=== PATIENT | male | born 1990 | race Hispanic/Latino ===

== ENCOUNTER 2016-05-23 11:07 | Emergency (ER) | payer SELFPAY ==
--- NOTE | 2016-05-23 12:13 | Emergency Department Report ---
Upper Extremity - HPI Chief Complaint: Extremity Injury, Upper Stated Complaint: RT HAND SWOLLEN Time Seen by Provider: 05/23/16 12:12 Upper Extremity: Left Hand (patient here complaining of right hand pain that traveling up to elbow and sometimes he feels that the pain is traveling from his elbow down to his hand. Pain ranges from 3-5 movement.), Left Thumb (right thumb pain palmar and dorsal aspect) Occurred When: 1 Day Mechanism: Unsure Severity: mild Symptoms: Yes Pain with Movement (right thumb and hand), Yes Limited Range of Movement (procedures unable to squeeze his hand. In fact is right thumb hurts when he moves it.), Yes Weakness, Yes Swelling, No Deformity, No Numbness, No Bruising/Ecchymosis, No Laceration or Abrasion Other History: This is a 25-year-old male patient who is here for right hand and thumb pain that started yesterday. Patient says he is having pain and swelling to right hand, and dorsal aspect especially to his right thumb. He reports that pain radiates from his hand to elbow and sometimes he feels like it radiates from is elbow to his hand. Described pain as sharp and ranges from 3-5 out of 10 movement. 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 She denies any fever or chills. Denies any nausea or vomiting. ED Review of Systems ROS: Stated complaint: RT HAND SWOLLEN Other details as noted in HPI Comment: All other systems reviewed and negative Constitutional: denies: chills, fever Eyes: denies: eye pain ENT: denies: ear pain, throat pain, congestion Respiratory: no symptoms reported Cardiovascular: denies: chest pain, palpitations, edema, syncope Gastrointestinal: denies: nausea, vomiting Musculoskeletal: joint swelling, arthralgia. denies: back pain Skin: denies: rash Neurological: weakness (to right hand). denies: headache, numbness, paresthesias, confusion, abnormal gait, vertigo ED Past Medical Hx - Past Medical History Previous Medical History?: Yes Hx Asthma: Yes - Surgical History Past Surgical History?: No - Family History Family history: no significant - Social History Smoking Status: Current Every Day Smoker Substance Use Type: Alcohol - Medications Home Medications: Home Medications Medication Instructions Recorded Confirmed Last Taken Type Naproxen [Naprosyn TAB] 500 mg PO BID PRN #20 tablet 05/23/16 Unknown Rx Upper Extremity Exam - Exam General: Vital signs noted. No distress. Alert and acting appropriately. This is a 25-year-old male well-nourished well-developed and nontoxic in appearance. Head and Torso: No HEENT Abnormality, No Neck Tenderness, No Chest/Lungs Abnormality, No Abdominal Tenderness, No Back Tenderness Shoulder Exam: Yes Normal Range of Motion in Shoulder, No Shoulder Tenderness, No Clavicle Tenderness, No Shoulder Deformity, No AC Joint Tenderness Arm Exam: No Arm/Humerus Tenderness, No Arm Deformity Elbow: Yes Normal Range of Motion in Elbow, No Elbow Tenderness, No Elbow Deformity Forearm: No Forearm Tenderness, No Forearm Deformity, No Pain with Pronation, No Pain with Supination Wrist: Yes Wrist Tenderness (radial side.), Yes Normal ROM in Wrist, Yes Pain with Axial Thumb Compression (right thumb), No Wrist Deformity, No Snuffbox Tenderness Hand: Yes Hand Tenderness (dorsal and palmar side right thumb area.), Yes Digit Tenderness (right thumb dorsal and palmar side), Yes Tendon Dysfunction ( enlargement of right thumb. Slightly flexed right thumb. Weakness to right hand and patient unable to make a fist. 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 Normal sensation to soft and pinprick), No Broken Skin ED Course Vital Signs 05/23/16 11:16 Temperature 98.4 F Pulse Rate 69 Respiratory 16 Rate Blood Pressure 126/84 O2 Sat by Pulse 100 Oximetry Vital Signs 05/23/16 05/23/16 05/23/16 11:16 12:46 14:13 Temperature 98.4 F Pulse Rate 69 73 Respiratory 16 16 18 Rate Blood Pressure 126/84 Blood Pressure 124/83 [Left] O2 Sat by Pulse 100 99 Oximetry - Reevaluation(s) Reevaluation #1: 05/23/16 13:38 Patient given morphine 4 mg IV, 1 L of normal saline. Lab work was ordered. I spoke with Dr. WINCHESTER who examined patient and awaiting lab results. Reevaluation #2: 05/23/16 14:52 Patient stable, lab work noted in evaluating patient, x-ray of the right hand normal exam. - Orthopedic Splinting/Casting Injury #1 Side: right Upper Extremity Injury Location: hand (with Thumb Spica) Upper Extremity Immobilizer: thumb spica (Prefabricated) ED Medical Decision Making - Lab Data Result diagrams: 05/23/16 12:50 Lab Results 05/23/16 05/23/16 05/23/16 Range/Units 12:50 12:50 12:50 WBC 7.7 (4.5-11.0) K/mm3 RBC 4.76 (3.65-5.03) M/mm3 Hgb 15.5 H (11.8-15.2) gm/dl Hct 45.4 (35.5-45.6) % MCV 95 H (84-94) fl MCH 33 H (28-32) pg MCHC 34 (32-34) % RDW 13.4 (13.2-15.2) % Plt Count 291 (140-440) K/mm3 Lymph % (Auto) 32.8 (13.4-35.0) % Sheridan % (Auto) 8.1 H (0.0-7.3) % Eos % (Auto) 6.1 H (0.0-4.3) % Baso % (Auto) 1.2 (0.0-1.8) % Lymph # 2.5 (1.2-5.4) K/mm3 Sheridan # 0.6 (0.0-0.8) K/mm3 Eos # 0.5 H (0.0-0.4) K/mm3 Baso # 0.1 (0.0-0.1) K/mm3 Seg Neutrophils % 51.8 (40.0-70.0) % Seg Neutrophils # 4.0 (1.8-7.7) K/mm3 ESR 5 (0-20) mm/Hr Sodium (137-145) mmol/L Potassium (3.6-5.0) mmol/L Chloride (98-107) mmol/L Carbon Dioxide (22-30) mmol/L Anion Gap mmol/L BUN (9-20) mg/dL Creatinine (0.8-1.5) mg/dL Estimated GFR ml/min BUN/Creatinine Ratio % Glucose (75-100) mg/dL Lactic Acid 0.9 (0.7-2.0) mmol/L Calcium (8.4-10.2) mg/dL Total Bilirubin 0.6 (0.1-1.2) mg/dL Direct Bilirubin < 0.2 (0-0.2) mg/dL AST 35 (5-40) units/L ALT 56 (7-56) units/L Alkaline Phosphatase 76 (35-129) units/L Total Creatine Kinase (55-170) units/L Total Protein 6.9 (6.3-8.2) g/dL Albumin 4.0 (3.9-5) g/dL Albumin/Globulin Ratio 1.4 % 05/23/16 05/23/16 Range/Units 12:50 12:50 WBC (4.5-11.0) K/mm3 RBC (3.65-5.03) M/mm3 Hgb (11.8-15.2) gm/dl Hct (35.5-45.6) % MCV (84-94) fl MCH (28-32) pg MCHC (32-34) % RDW (13.2-15.2) % Plt Count (140-440) K/mm3 Lymph % (Auto) (13.4-35.0) % Sheridan % (Auto) (0.0-7.3) % Eos % (Auto) (0.0-4.3) % Baso % (Auto) (0.0-1.8) % Lymph # (1.2-5.4) K/mm3 Sheridan # (0.0-0.8) K/mm3 Eos # (0.0-0.4) K/mm3 Baso # (0.0-0.1) K/mm3 Seg Neutrophils % (40.0-70.0) % Seg Neutrophils # (1.8-7.7) K/mm3 ESR (0-20) mm/Hr Sodium 139 (137-145) mmol/L Potassium 4.0 (3.6-5.0) mmol/L Chloride 103.8 (98-107) mmol/L Carbon Dioxide 22 (22-30) mmol/L Anion Gap 17 mmol/L BUN 11 (9-20) mg/dL Creatinine 0.6 L (0.8-1.5) mg/dL Estimated GFR > 60 ml/min BUN/Creatinine Ratio 18.33 % Glucose 101 H (75-100) mg/dL Lactic Acid (0.7-2.0) mmol/L Calcium 8.8 (8.4-10.2) mg/dL Total Bilirubin (0.1-1.2) mg/dL Direct Bilirubin (0-0.2) mg/dL AST (5-40) units/L ALT (7-56) units/L Alkaline Phosphatase (35-129) units/L Total Creatine Kinase 117 (55-170) units/L Total Protein (6.3-8.2) g/dL Albumin (3.9-5) g/dL Albumin/Globulin Ratio % Blood Cultures are pending - Radiology Data Radiology results: report reviewed X-ray of right hand reveal normal exam. - Medical Decision Making ED course: Patient here with family complaining of right hand pain. Upon reevaluation patient found to have tendinitis. CBC reflected no bacterial infection. Chemistry was within normal limits, ESR normal limits and lactic acid was within normal limits. Patient given 1 L of IV fluid in emergency room , 4 mg of morphine IV. X-rays reflects the patient has normal x-rays hand. Blood culture sent and pending. I spoke with Dr. Giles regarding patient presentation and clinical findings. She examined patient and review lab work and x-ray. It was determined that patient can be discharged home with prescription for anti-inflammatory and to follow up with hand specialist. I discussed with patient and family in length regarding in diagnosis and treatment plan and also need to follow up with hand specialist which I gave them a referral and ask him to call this evening to schedule follow-up visit. Phone number and address given Dr. Ceja who hit by orthopedic hand specialist. Patient was placed in a prefabricated thumb spica. He had good color, movement, sensation and temperature to extremities. No signs of compartment syndrome. Patient discharged home with prescription for Naprosyn. - Differential Diagnosis arthritis, tenosynovitis, tendinitis Critical care attestation.: If time is entered above; I have spent that time in minutes in the direct care of this critically ill patient, excluding procedure time. ED Disposition Clinical Impression: Tendinitis of right hand, Arthralgia of right hand Disposition: DISCHARGED TO HOME OR SELFCARE Is pt being admited?: No Does the pt Need Aspirin: No Condition: Stable Instructions: Tendinitis (ED), Arthralgia (ED) Additional Instructions: Please increase her fluid intake Please follow up with hand specialist provided. MD Dr. Evens Merchant is an orthopedic surgery, hand surgery, orthopedic hand surgery, preventive medicine, and emergency medicine doctor with offices in [place], [place]. [address] [place], [place] [address] 10[place] away keep the splint on to protect your thumb and hand until he was seen by orthopedic doctor If you notice that he developed fever, nausea vomiting, redness to hand or any parts of fever or upper extremity, increasing pain, increasing swelling, numbness, tingling and loss of sensation please return to emergency room [facility]. Prescriptions: Naproxen [Naprosyn TAB] 500 mg PO BID PRN #20 tablet PRN Reason: Tendinitis Referrals: Evens CEJA [Other] - 24 Hours [facility] [Outside] - 24 Hours [facility] [Outside] - 24 Hours Forms: Accompanied Note, Work/School Release Form(ED)
[2016-05-23] MEDS ORDERED: MORPHINE IV ONE (12:25)
[2016-05-23 13:10] LABS: Basophils % (Auto) 1.2 % (0.0-1.8); Eosinophils % (Auto) 6.1 % (0.0-4.3); Hematocrit 45.4 % (35.5-45.6); Hemoglobin 15.5 gm/dl (11.8-15.2); Mean Corpuscular HGB Conc 34 % (32-34); Mean Corpuscular Hemoglobin 33 pg (28-32); Mean Corpuscular Volume 95 fl (84-94); Platelet Count 291 K/mm3 (140-440); Red Blood Count 4.76 M/mm3 (3.65-5.03); Red Cell Distribution Width 13.4 % (13.2-15.2); White Blood Count 7.7 K/mm3 (4.5-11.0)
[2016-05-23 13:26] LABS: Anion Gap 17 mmol/L; BUN/Creatinine Ratio 18.33; Blood Urea Nitrogen 11 mg/dL (9-20); Calcium 8.8 mg/dL (8.4-10.2); Carbon Dioxide 22 mmol/L (22-30); Chloride 103.8 mmol/L (98-107); Glucose 101 mg/dL (75-100); Sodium 139 mmol/L (137-145)
[2016-05-23 13:30] LABS: Alanine Aminotransferase 56 units/L (7-56); Albumin/Globulin Ratio 1.4 %; Alkaline Phosphatase 76 units/L (35-129); Bilirubin,Total 0.6 mg/dL (0.1-1.2); Total Protein 6.9 g/dL (6.3-8.2)
[2016-05-23 13:31] LABS: Bilirubin,Direct < 0.2 mg/dL (0-0.2)
[2016-05-23 13:50] LABS: Erythrocyte Sedimentation Rate 5 mm/Hr (0-20)
[2016-05-23 14:14] VITALS: BP 124/83
--- NOTE | 2016-05-23 14:27 | XRay Report ---
RIGHT HAND RADIOGRAPHS INDICATION: Hand pain, swelling. COMPARISON: None similar at this institution. FINDINGS: AP, lateral and oblique right hand radiographs demonstrate normal bones, joints and soft tissues. Some motion artifact. CONCLUSION: No acute right hand radiographic abnormality. Thank you for the opportunity to participate in this patient's care.
== END 2016-05-23 15:27 | disposition home or self-care (01) ==
LOC: ED 11:07
DX: M77.9 Enthesopathy, unspecified (principal); J45.909 Unspecified asthma, uncomplicated; F17.200 Nicotine dependence, unspecified, uncomplicated
CPT/HCPCS: 29125; 36415; 73130; 80048; 80074; 82140; 82550; 85025; 85652; 96374; 99284; J2270